=== PATIENT | female | born 1990 | race Caucasian/White ===

== ENCOUNTER → 2016-04-23 | Outpatient (CLI) | payer BC | LOC: HPND 09:47 | PROVIDERS: ATTEND Obstetrics & Gynecology | DX: O09.529 Supervision of elderly multigravida, unspecified trimester (principal); O35.8XX0 Maternal care for other (suspected) fetal abnormality and damage, not applicable or unspecified; Z84.81 Family history of carrier of genetic disease | CPT/HCPCS: 76801 ==

== ENCOUNTER → 2016-05-04 | Outpatient (CLI) | payer BC | LOC: EDUNIT# 11:00 → HPND 11:12 | PROVIDERS: ATTEND Obstetrics & Gynecology | DX: O09.521 Supervision of elderly multigravida, first trimester (principal); O35.8XX0 Maternal care for other (suspected) fetal abnormality and damage, not applicable or unspecified; Z36 Encounter for antenatal screening of mother; Z84.81 Family history of carrier of genetic disease; Z3A.12 12 weeks gestation of pregnancy | CPT/HCPCS: 36416; 76813 ==

== ENCOUNTER → 2016-06-15 | Outpatient (CLI) | payer BC | LOC: EDUNIT# 10:45 → HPND 10:55 | PROVIDERS: ATTEND Obstetrics & Gynecology | DX: O35.8XX0 Maternal care for other (suspected) fetal abnormality and damage, not applicable or unspecified (principal); G71.0 Muscular dystrophy; Z3A.00 Weeks of gestation of pregnancy not specified | CPT/HCPCS: 76811 ==

== ENCOUNTER → 2016-08-10 | Outpatient (CLI) | payer BC | LOC: HPND 09:51 | PROVIDERS: ATTEND Obstetrics & Gynecology | DX: O36.5920 Maternal care for other known or suspected poor fetal growth, second trimester, not applicable or unspecified (principal) | CPT/HCPCS: 76816; 76818; 76820; 76821 ==

== ENCOUNTER → 2016-08-18 | Outpatient (CLI) | payer BC | LOC: HPND 08:13 | PROVIDERS: ATTEND Obstetrics & Gynecology | DX: O36.5920 Maternal care for other known or suspected poor fetal growth, second trimester, not applicable or unspecified (principal) ==

== ENCOUNTER → 2016-09-21 | Outpatient (CLI) | payer BC | LOC: HPND 13:01 | PROVIDERS: ATTEND Obstetrics & Gynecology | DX: O36.5990 Maternal care for other known or suspected poor fetal growth, unspecified trimester, not applicable or unspecified (principal) | CPT/HCPCS: 76816 ==

== ENCOUNTER 2016-10-04 17:43 | Emergency (ER) | payer BC ==
--- NOTE | 2016-10-04 18:27 | PD ---
HPI Chief Complaint Decreased movement Date Seen: Oct 04, 2016 Travel History International Travel<30 Days: No Contact w/Intl Traveler<30Days: No Known Affected Area: No History of Present Illness HPI This is 25-year-old white female at [address] Quevedo for care presents complaining of decreased movement just noted today. Baby's been active up to that point. She's had no other complaints problems no pain bleeding or leakage of fluid. Here on OB ED the heart rate tracing is reactive denies accelerations and variability. She is only had 1 or 2 small contractions that she's been here nothing regular and she is not feeling any pain. Since being here on OB ED she has felt the baby move some , while I was in the room she said Oh I am feeling the baby move some now Para: 0 : 2 History Obstetric History Obstetric History One the past Social History Alcohol Use: No Tobacco Use: No Substance Abuse: No Review of Systems General / Constitutional: No: Fever, Weight Gain, Chills, Other Eyes: No: Diploplia, Blurred Vision, Visual changes, Pain, Photophobia HENT: No: Headaches, Vertigo, Lightheadedness Cardiovascular: No: Irregular Rhythm, Chest Pain or Discomfort, Palpitations, Tachycardia, Syncope, Varicosities, Edema, Cyanosis Respiratory: No: Cough, Short of Breath, Other Gastrointestinal: No: Nausea, Vomiting, Diarrhea Genitourinary: No: Decreased Urinary Output, Oliguria Musculoskeletal: No: Limited ROM, Weakness, Cramping, Edema, Pain Skin: No Rash, No Itching, No Dryness, No Lumps, No Change in Pigmentation, No Change in Nails, No Alopecia, No Lesions Neurologic: No: Weakness, Dizziness, Syncope, Focal Abnormalities, Coordination Problem, Headache, Slurred Speech, Seizures Psychiatric: No: Depression, Suicidal Ideations, Homicidal Ideation Endocrine: No: Heat Intolerance, Cold Intolerance, Polydipsia, Polyuria, Other Physical Exam Narrative GENERAL: Well-nourished, well-developed patient. SKIN: Warm and dry. HEAD: Normocephalic and atraumatic. EYES: No scleral icterus. No injection or drainage. ENT: No nasal drainage noted. Mucous membranes pink. Airway patent. NECK: Supple, trachea midline. No JVD. CARDIOVASCULAR: Regular rate and rhythm without murmurs, gallops, or rubs. RESPIRATORY: Breath sounds equal bilaterally. No accessory muscle use. BREASTS: Bilateral exam showed no masses , no retractions, no nipple discharge. ABDOMEN/GI: Abdomen soft, non-tender, bowel sounds present, no rebound, no guarding Gravid to [34-] weeks size Fundal Height: [-34] Membranes: [intact ] Uterine Contractions: [none-] FHT's: Category: [1-] Baseline: [133-] Reactive: [yes-] Variability: [mod-] Decels: [-none + accels] EXTREMITIES: No cyanosis or edema. BACK: Nontender without obvious deformity. No CVA tenderness. NEUROLOGICAL: Awake and alert. Motor and sensory grossly within normal limits. Five out of 5 muscle strength in all muscle groups. Normal speech. MDM Interpretation(s) Patient is 25-year-old white female G2 P 0 34 weeks who presents with decreased movement today. She has no other complaints problems. No bleeding or leakage of fluid or pain. heart rate tracing is reactive here on OB ED was watched for of 30 minutes with excellent strip Plan Plan to discharge patient home to observe baby's activity and kick counts. She scheduled to see her doctor next week. I encouraged her that if she felt like there is decreased movement over the next 1-2 day she should call the office see her sooner Diagnosis Diagnosis: Primary Impression: Decreased movement affecting management of in third trimester Disposition: 01 DISCHARGE HOME Condition: Stable Tucker Fenton II, MD Oct 04, 2016 18:27
== END 2016-10-04 19:05 | disposition home or self-care (01) ==
LOC: HOBED 17:43
DX: O36.8130 Decreased fetal movements, third trimester, not applicable or unspecified (principal); Z3A.34 34 weeks gestation of pregnancy
CPT/HCPCS: 59025

== ENCOUNTER → 2016-10-14 | Outpatient (CLI) | payer BC ==
[~2016-10-14] MED LIST: IBUP-232 PO
== END ==
LOC: HPND 12:55
PROVIDERS: ATTEND Obstetrics & Gynecology
DX: O36.5931 Maternal care for other known or suspected poor fetal growth, third trimester, fetus 1 (principal); Z3A.00 Weeks of gestation of pregnancy not specified
CPT/HCPCS: 76816

== ENCOUNTER 2016-11-09 12:38 | Inpatient (IN) | payer BC ==
[~2016-11-09] VITALS: Ht 165.1 cm; Wt 65.8 kg
[2016-11-09] MEDS: LACTATED RINGER'S 1000 ML INJ 1,000 ML IV SCH (14:00)
[2016-11-09 15:02] LABS: AUTOMATED NEUTROPHIL # 6.4 TH/MM3 (1.8-7.7); BASOPHIL % 0.3 % (0.0-2.0); EOSINOPHIL # 0.1 TH/MM3 (0-0.4); EOSINOPHIL % 1.1 % (0.0-4.0); LYMPH % 18.8 % (9.0-44.0); LYMPHOCYTE # 1.6 TH/MM3 (1.0-4.8); MEAN CELL VOLUME 91.3 FL (80.0-100.0); MEAN CORPUSCULAR HEMOGLOBIN 31.4 PG (27.0-34.0); MEAN CORPUSCULAR HGB CONC 34.3 % (32.0-36.0); MONO % 6.9 % (0.0-8.0); NEUT % 72.9 % (16.0-70.0); PLATELET COUNT 249 TH/MM3 (150-450); RED BLOOD COUNT 3.83 MIL/MM3 (4.00-5.30); RED CELL DISTRIBUTION WIDTH 13.7 % (11.6-17.2); WHITE BLOOD COUNT 8.7 TH/MM3 (4.0-11.0)
[2016-11-09 15:13] LABS: BACTERIA, URINE OCC /hpf; BLOOD, URINE NEG (NEG); COMMENT (UR) CULT NOT INDICATED; CULTURE IF INDICATED CULT NOT INDICATED; GLUCOSE,URINE NEG (NEG); KETONE, URINE NEG (NEG); NITRITE,URINE NEG (NEG); URINE COLOR YELLOW (YELLW/STRAW)
[2016-11-09 15:24] LABS: HEMO FLAGS AUTO DIFF
[2016-11-09] MEDS ORDERED: DINOPROSTONE 10 MG INSERT-LEAVE FOR 12 HOURS VAGINAL ONE (16:00)
[2016-11-09] MEDS ORDERED: NS 1000 ML OTHER PRN (16:00)
[2016-11-09 16:03] LABS: SCAN/DIFF AUTO DIFF CONFIRMED
[2016-11-09] MEDS ORDERED: MINERAL OIL 10 ML VIAL TOPICAL PRN (16:30)
[2016-11-09] MEDS ORDERED: LIDOCAINE HCL 1% 50 ML VIAL INFIL PRN (16:30)
[2016-11-09] MEDS ORDERED: LIDOCAINE HCL 1% 50 ML VIAL I-DERMAL PRN (16:30)
[2016-11-09] MEDS ORDERED: NS 500 ML BOLUS IV PRN (16:30)
[2016-11-09] MEDS ORDERED: LACTATED RINGER'S 1000 ML BOLUS IV PRN (16:30)
[2016-11-09] MEDS ORDERED: LACTATED RINGER'S 1000 ML IV SCH (16:30)
[2016-11-09] MEDS ORDERED: NS 1000 ML IV PRN (16:30)
[2016-11-09] MEDS ORDERED: ceFAZolin 1,000 MG/NS 100 ML IV SCH ×2 (16:30)
[2016-11-09] MEDS ORDERED: ONDANSETRON HCL 4 MG/2 ML VIAL IV PRN (16:30)
[2016-11-09] MEDS ORDERED: OXYTOCIN 30 UNITS 500ML PREMIX IV ONE (16:30)
[2016-11-09] MEDS ORDERED: CITRIC ACID-SODIUM CITRATE LIQ 30 ML UDC PO SCH (16:30)
[2016-11-09] MEDS ORDERED: PENICILLIN G POT 5,000,000 UNITS/NS 100 ML (Mini-Bag Plus) IV ONE ×2 (17:00)
[2016-11-09] MEDS ORDERED: PENICILLIN G POT 2,500,000 UNITS/NS 100 ML IV SCH ×2 (21:00)
[2016-11-10] MEDS ORDERED: OXYTOCIN 30 UNITS/NS 500ML PREMIX IV SCH (04:30)
[2016-11-10] MEDS: LACTATED RINGER'S 1000 ML INJ 1,000 ML IV SCH ×2 (08:00→09:48)
[2016-11-10] MEDS ORDERED: PENICILLIN G POT 5,000,000 UNITS/NS 100 ML(Mini-Bag Plus) IV ONE ×2 (10:30)
[2016-11-10] MEDS ORDERED: fentaNYL 2MCG-BUPIV 0.125% INJ 100 ML ONE (11:34)
[2016-11-10] MEDS ORDERED: ePHEDrine/NS 25 MG/5 ML SYR ONE (11:35)
[2016-11-10] MEDS ORDERED: PENICILLIN G POT 2,500,000 UNITS/NS 100 ML IV SCH ×2 (14:00)
[2016-11-10] MEDS ORDERED: MEASLES, MUMPS, RUBELLA VACCINE 0.5 ML VIAL SQ ONE (16:00)
[2016-11-10] MEDS ORDERED: DIPHTH/TETANUS/ACEL PERTUSSIS (BOOSTER) 0.5 ML VIAL/PFS IM ONE (16:00)
--- NOTE | 2016-11-10 16:08 | PD.OB.DELI ---
Weeks gestation: 40 Gest age assessed date: Nov 09, 2016 Gest age assessed time: 14:28 Pt started active labor?: No Medical induction of labor?: Yes Medical induction start date: Nov 09, 2016 Medical induction start time: 16:20 Artificial rupture of membrane: No Anesthesia: Epidural, Lidocaine local to perineum Episiotomy: None Vaginal Delivery: Normal Presentation: Occiput anterior Nuchal Cord: None Delayed cord clamping (45 sec): Yes : Female, Single Delivery date: Nov 10, 2016 Delivery time: 15:36 One Minute : 9 Five Minute : 9 Placenta: Spontaneous delivery, Intact, 3 vessel cord Repair: Chromic running Estimated blood loss: 300 ml Additional Information b/l labial lacerations repaired with 3-0 chromic in a running fashion Cecilia Quevedo MD Nov 10, 2016 16:08
[2016-11-10] MEDS ORDERED: BENZOCAINE 20% TOPICAL SPRAY 60 ML CAN TOPICAL PRN (16:15)
[2016-11-10] MEDS ORDERED: OXYTOCIN 30 UNITS-500ML PREMIX 500 ML IV SCH (16:15)
[2016-11-10] MEDS ORDERED: OXYTOCIN 10 UNIT/ML AMP XX PRN (16:15)
[2016-11-10] MEDS ORDERED: WITCH HAZEL 50%/GLYCERIN 12.5% 40 PAD JAR TOPICAL PRN (16:15)
[2016-11-10] MEDS ORDERED: oxyCODONE/ACETAMINOPHEN 5 MG/325 MG TAB PO PRN ×2 (16:15)
[2016-11-10] MEDS ORDERED: SODIUM CHLORIDE 0.9% FLUSH 10 ML FLUSH IV FLUSH PRN (16:15)
[2016-11-10] MEDS ORDERED: ALUMINUM/MAGNESIUM/SIMETH 30 ML CUP PO PRN (16:15)
[2016-11-10] MEDS ORDERED: ZOLPIDEM TARTRATE 5 MG TAB PO PRN (16:15)
[2016-11-10] MEDS ORDERED: OXYTOCIN 30 UNITS-500ML PREMIX 500 ML IV ONE (16:15)
[2016-11-10] MEDS ORDERED: LIDOCAINE HCL 1% 20 ML VIAL INFIL ONE (16:15)
[2016-11-10] MEDS ORDERED: ONDANSETRON ODT 4 MG TAB PO PRN (16:15)
--- NOTE | 2016-11-10 16:15 | MH ---
cc: RUDY VENCES DATE OF ADMISSION: 11/09/2016 ADMITTING DIAGNOSIS: HISTORY OF PRESENT ILLNESS: The patient is a 25-year-old 2, para 1, 0-0-1-0 who presents with an SWAPNIL of 11/10/16 from Diagnostics with and JERMAIN of 3, consistent with oligohydramnios. The patient was admitted for induction of labor secondary to this. Her had been relatively uncomplicated. She reported good movement. No vaginal bleeding. No abdominal pain, no leakage of fluid. PAST MEDICAL HISTORY: Negative. PAST SURGICAL HISTORY: Significant for D&C with suction. OBSTETRICAL HISTORY: One prior first trimester termination. MAMMAL KEEPER HISTORY: The patient did have a history of Chlamydia in 2012. ALLERGIES: NONE. REVIEW OF SYSTEMS: Negative. PHYSICAL EXAMINATION: VITAL SIGNS: Her blood pressure is 108/70, height is 5'4", pulse is 82. GENERAL: No acute distress. HEART: Regular rate and rhythm. LUNGS: Clear to auscultation bilaterally. ABDOMEN: Soft, nontender, gravid. LOWER EXTREMITIES: Nontender, non-edematous. IMPRESSION: at term with oligohydramnios, PLAN: Cervidil followed by Pitocin. Her Group B strep is positive. She will be treated once she is in active, has ruptured membranes. Rudy Vences MD TEG/GREG /3:59 PM /4:03 PM
[2016-11-10] MEDS ORDERED: NO SYSTEM NARCOTICS PRN (17:15)
[2016-11-10] MEDS ORDERED: DO NOT ADMINISTER ANTICOAGULANTS PRN (17:15)
[2016-11-10] MEDS ORDERED: fentaNYL 2MCG-BUPIV 0.125% 100 ML EPIDURAL SCH (17:15)
[2016-11-10] MEDS ORDERED: ePHEDrine/NS 25 MG/5 ML SYR IV PRN (17:15)
[2016-11-10] MEDS: DOCUSATE SODIUM 50 MG/SENNA 8.6 MG TAB PO PRN (18:26)
[2016-11-10] MEDS: IBUPROFEN 600 MG TAB PO PRN (18:26)
[2016-11-10] MEDS ORDERED: SODIUM CHLORIDE 0.9% FLUSH 10 ML FLUSH IV FLUSH SCH (21:00)
[2016-11-11] MEDS: DOCUSATE SODIUM 50 MG/SENNA 8.6 MG TAB PO PRN (09:48)
[2016-11-11] MEDS: IBUPROFEN 600 MG TAB PO PRN ×3 (09:48→23:00)
[2016-11-11] MEDS: ACETAMINOPHEN 325 MG TAB PO PRN ×2 (09:49→16:16)
--- NOTE | 2016-11-11 13:06 | HHI.OB ---
Subjective Post Day: 1 Remarks pain controlled, mod lochia, brenda po, +void/flatus Objective Objective Remarks GENERAL: Well-nourished, well-developed patient. CARDIOVASCULAR: Regular rate and rhythm without murmurs, gallops, or rubs. RESPIRATORY: Breath sounds equal bilaterally. No accessory muscle use. ABDOMEN/GI: Abdomen soft, non-tender. Fundus: Firm, non-tender at umbilicus. GENITOURINARY: Light to moderate bleeding. EXTREMITIES: No cyanosis or edema, non-tender, without signs of DVT. Medications and IVs Current Medications Medications (Trade) Dose Ordered Sig/Latoya Route Start Time Stop Time Status Last Admin Lactated Ringer's 1,000 ml @ 125 mls/hr Q8H IV 11/09/16 16:00 11/10/16 09:48 Sodium Chloride 1,000 ml @ 0 mls/hr UNSCH PRN OTHER 11/09/16 16:00 Oxytocin 500 ml @ 0 mls/hr TITRATE IV 11/10/16 04:30 11/10/16 06:20 Lactated Ringer's 1,000 ml @ 125 mls/hr Q8H IV 11/09/16 16:30 Lactated Ringer's 1,000 ml @ 3,000 mls/hr BOLUS PRN IV 11/09/16 16:30 Sodium Chloride 500 ml @ 1,000 mls/hr BOLUS PRN IV 11/09/16 16:30 Sodium Chloride 1,000 ml @ 100 mls/hr Q10H PRN IV 11/09/16 16:30 (Bicitra Liq) 30 ml ASSISTANT CLINICAL NURSE MANAGER PO 11/09/16 16:30 11/12/16 16:29 (Zofran Inj) 4 mg Q6H PRN IV 11/09/16 16:30 (fentaNYL INJ) 50 mcg Q1H PRN IV PUSH 11/09/16 16:30 11/10/16 09:48 (fentaNYL INJ) 100 mcg Q1H PRN IV PUSH 11/09/16 16:30 11/10/16 11:10 (Muri-Lube Oil) 10 ml UNSCH PRN TOPICAL 11/09/16 16:30 Penicillin G Potassium [id number] units/Sodium Chloride 100 ml @ 200 mls/hr Q4H IV 11/10/16 14:00 (Pitocin Inj) 20 units UNSCH X1 PRN XX 11/10/16 16:15 11/11/16 16:14 (NS Flush) 2 ml BID IV FLUSH 11/10/16 21:00 (NS Flush) 2 ml UNSCH PRN IV FLUSH 11/10/16 16:15 (Tylenol) 650 mg Q4H PRN PO 11/10/16 16:15 11/11/16 09:49 (Motrin) 600 mg Q6H PRN PO 11/10/16 16:15 11/11/16 09:48 (Percocet 5-325 Mg) 1 tab Q4H PRN PO 11/10/16 16:15 (Percocet 5-325 Mg) 2 tab Q4H PRN PO 11/10/16 16:15 (Americaine 20% Top Spr) 1 spray Q4H PRN TOPICAL 11/10/16 16:15 11/10/16 20:52 (Tucks Pads) 1 applic QID PRN TOPICAL 11/10/16 16:15 11/10/16 20:52 (Mildred-Colace) 2 tab Q12H PRN PO 11/10/16 16:15 11/11/16 09:48 (Ambien) 5 mg HS PRN PO 11/10/16 16:15 (Mag-Al Plus Susp Liq) 15 ml Q8H PRN PO 11/10/16 16:15 (Zofran Odt) 4 mg Q6H PRN PO 11/10/16 16:15 Miscellaneous Information No systemic narcotics to be given except... UNSCH PRN .XX 11/10/16 17:15 11/11/16 17:14 Miscellaneous Information DO NOT ADMINISTER ANY ANTICOAGUL... UNSCH PRN .XX 11/10/16 17:15 11/11/16 17:14 Fentanyl/ Bupivacaine HCl 100 ml @ 0 mls/hr TITRATE EPIDURAL 11/10/16 17:15 (ePHEDrine/NS 25 MG/5 ML SYR) 10 mg UNSCH PRN IV 11/10/16 17:15 11/11/16 17:14 Assessment/Plan Problem List: (1) Spontaneous vaginal delivery ICD Codes: O80 - Encounter for full-term uncomplicated delivery Plan: routine pp care Cecilia Quevedo MD Nov 11, 2016 13:06
[2016-11-11] MEDS ORDERED: IBUP-232 PO (13:08)
--- NOTE | 2016-11-11 13:08 | HHI.DCPOC ---
Discharge Care Plan Diagnosis: (1) Spontaneous vaginal delivery Report Symptoms to Your Doctor -Temperature above 100.5 degrees -Redness, of incision or excessive or foul smelling drainage -Unusual pain or calf pain -Increased vaginal bleeding -Painful or difficulty urinating -Feelings of extreme sadness or anxiety after 2 weeks Goals to Promote Your Health * To prevent worsening of your condition and complications * To maintain your health at the optimal level Directions to Meet Your Goals Take your medications as prescribed Follow your dietary instruction Follow activity as directed Ensure plenty of rest for recovery Drink fluids for hydration Keep your appointments as scheduled Take your immunizations and boosters as scheduled If your symptoms worsen call your PCP, if no PCP go to Urgent Care Center or Emergency Room Smoking is Dangerous to Your Health. Avoid second hand smoke Call the 24-hour crisis hotline for domestic abuse at Cecilia Quevedo MD Nov 11, 2016 13:08
[2016-11-12] MEDS: IBUPROFEN 600 MG TAB PO PRN ×2 (06:07→12:25)
[2016-11-12 08:35] VITALS: BP 104/69; PULSE 64; RESP 16; TEMP 97.5
[2016-11-12] MEDS: DOCUSATE SODIUM 50 MG/SENNA 8.6 MG TAB PO PRN (12:31)
== END 2016-11-12 16:07 | disposition home or self-care (01) | DRG 775 ==
LOC: HPND 12:38 → H2EA 13:45 → H1EA 11-10 17:12
PROVIDERS: ADMIT Obstetrics & Gynecology; ATTEND Obstetrics & Gynecology
PROC: 3E0P7GC Introduction of Other Therapeutic Substance into Female Reproductive, Via Natural or Artificial Opening (ICD-10-PCS; 2016-11-09)
PROC: 10E0XZZ Delivery of Products of Conception, External Approach (ICD-10-PCS; principal; 2016-11-10)
PROC: 0HQ9XZZ Repair Perineum Skin, External Approach (ICD-10-PCS; 2016-11-10)
DX: O41.03X0 Oligohydramnios, third trimester, not applicable or unspecified (principal); O99.824 Streptococcus B carrier state complicating childbirth; Z3A.40 40 weeks gestation of pregnancy; Z37.0 Single live birth; O70.0 First degree perineal laceration during delivery
CPT/HCPCS: 59025; 76816; 81001; 85025; 86900; 86901; 90715; J2540; J2590; J3010; J7120